=== PATIENT | female | born 1995 | race Caucasian/White ===

== ENCOUNTER 2019-07-27 14:50 | Emergency (ER) | payer BC, OTHER ==
[~2019-07-27] VITALS: Ht 170 cm; Wt 57.3 kg
[2019-07-27] MEDS ORDERED: ANTACID SUSP 30 ML UDC (MYLANTA) PO ONE (16:00)
[2019-07-27] MEDS ORDERED: LIDOCAINE 2% VISCOUS 15 ML UDC PO ONE (16:00)
[2019-07-27] MEDS ORDERED: DEXAMETHASONE 10 MG/ML (DECADRON) 1 ML VIAL IM ONE (16:00)
--- NOTE | 2019-07-27 16:06 | ED EENT ---
History of Present Illness General Chief Complaint: Oral/Throat Problems Stated Complaint: SORE THROAT Nursing Triage Note: Patient ambulatory to ER FT[facility] with complaint of sore throat and sores in mouth. Patient states this has been present since tuesday and went to Urgent care on tuesday. She states they tested her for Strep and it was negative. They also tested her for Herpes but that result is not back yet. She was given Acyclovir and Fluconazole which she started yesterday. She states today is worse and she has difficulty eating or drinking. Source: patient Exam Limitations: no limitations History of Present Illness Date Seen by Provider: Jul 27, 2019 Time Seen by Provider: 16:00 Initial Comments To ER with c/o sore throat and sores in mouth since tuesday. Saw urgent care yesterday dx with thrush and tested for herpes simplex. Given acyclovir and fluconazole which she started yesterday. Magic mouthwash is not helping much. Timing/Duration: abrupt Severity: moderate Location: mouth, throat Associated Symptoms: denies symptoms Allergies and Home Medications Allergies Coded Allergies: lamotrigine (Verified Allergy, Unknown, 07/27/19) Patient Home Medication List Home Medication List Reviewed: Yes Review of Systems Review of Systems Constitutional: see HPI Eyes: No Symptoms Reported Ears: No Symptoms Reported Nose: no symptoms reported Mouth: no symptoms reported Throat: no symptoms reported Respiratory: no symptoms reported Cardiovascular: no symptoms reported Musculoskeletal: no symptoms reported Past [place] Hx Patient Social History Alcohol Use: Denies Use Recreational Drug Use: No Smoking Status: Never a Smoker 2nd Hand Smoke Exposure: No Recent Foreign Travel: No Contact w/Someone Who Travel: No Recent Infectious Disease Expo: No Recent Hopitalizations: No Physical Abuse: No Sexual Abuse: No Mistreated: No Fear: No Immunizations Up To Date PED Vaccines UTD: Yes Seasonal Allergies Seasonal Allergies: No Past Medical History Surgeries: No Respiratory: No Cardiac: No Neurological: No Last Menstrual Period: Jul 03, 2019 Genitourinary: No Gastrointestinal: No Musculoskeletal: No Endocrine: No HEENT: No Cancer: No Psychosocial: Yes Anxiety, Bipolar, Depression Integumentary: No Physical Exam Vital Signs Vital Signs - First Documented 07/27/19 14:50 Temp 37.3 Pulse 108 Resp 16 B/P (MAP) 127/85 (99) Pulse Ox 100 O2 Delivery Room Air Height, Weight, BMI Height: '" Weight: lbs. oz. kg; 19.00 BMI Method: General Appearance: WD/WN, no apparent distress Eyes: bilateral eye normal inspection, bilateral eye PERRL, bilateral eye EOMI Ears: bilateral ear auricle normal, bilateral ear canal normal, bilateral ear TM normal Nose: normal inspection Mouth/Throat: No tonsillar swelling, No trismus, No uvula swelling; other (to the tongue, soft palate and buccal mucosa there are a multitude of small areas of ulceration about 1-2 mm with surrounding erythema) Neck: lymphadenopathy (R), lymphadenopathy (L) Respiratory: no respiratory distress, no accessory muscle use Gastrointestinal: normal bowel sounds, non tender Neurologic/Psychiatric: alert, normal mood/affect, oriented x 3 Skin: normal color, warm/dry Progress/Results/Core Measures Results/Orders My Orders Orders - LEANNA MACDONALD APRN Antacid Suspension (Mylanta Suspension (07/27/19 16:00) Lidocaine 2% Viscous 15 Ml (Xylocaine Vi (07/27/19 16:00) Dexamethasone Injection (Decadron Inject (07/27/19 16:00) Ns Iv 1000 Ml (Sodium Chloride 0.9%) (07/27/19 16:30) Medications Given in ED Current Medications Medications Dose Ordered Sig/Yumiko Route Start Time Stop Time Status Last Admin Dose Admin Al Hydrox/Mg Hydrox/Simethicone 30 ml ONCE ONCE PO 07/27/19 16:00 07/27/19 16:01 DC 07/27/19 16:02 30 ML Dexamethasone Sodium Phosphate 10 mg ONCE ONCE IM 07/27/19 16:00 07/27/19 16:01 DC 07/27/19 16:07 10 MG Lidocaine HCl 15 ml ONCE ONCE PO 07/27/19 16:00 07/27/19 16:01 DC 07/27/19 16:03 15 ML Vital Signs/I&O 07/27/19 14:50 Temp 37.3 Pulse 108 Resp 16 B/P (MAP) 127/85 (99) Pulse Ox 100 O2 Delivery Room Air Blood Pressure Mean: 99 POS Departure Impression Primary Impression: Herpetic gingivostomatitis Disposition: 01 HOME, SELF-CARE Condition: Stable Departure-Patient Inst. Decision time for Depature: 16:05 Patient Instructions: Gingivostomatitis, Child (DC) Add. Discharge Instructions: 1. Magic mouthwash as directed 2. Acyclovir antiviral medication as directed. 3. Follow up with your doctor next week All discharge instructions reviewed with patient and/or family. Voiced understanding. LEANNA MACDONALD APRN Jul 27, 2019 16:06 POS
[2019-07-27] MEDS ORDERED: NS IV 1000 ML 1,000 ML IV SCH (16:30)
[2019-07-27 17:36] VITALS: BP 133/86
== END 2019-07-27 17:36 | disposition home or self-care (01) ==
LOC: ER 14:51
DX: B00.2 Herpesviral gingivostomatitis and pharyngotonsillitis (principal); F41.9 Anxiety disorder, unspecified; F31.9 Bipolar disorder, unspecified; Z88.8 Allergy status to other drugs, medicaments and biological substances